=== PATIENT | male | born 1965 | race Caucasian/White ===

== ENCOUNTER 2017-04-04 16:10 | Inpatient (IN) ==
[2017-04-04] MEDS ORDERED: LORazepam 2 MG/1 ML VIAL IV STA (16:29)
[2017-04-04] MEDS ORDERED: ZIPRASIDONE 20 MG/1 ML VIAL IM STA (16:29)
[2017-04-04] MEDS ORDERED: LORazepam 2 MG/1 ML VIAL ONE (16:33)
[2017-04-04] MEDS ORDERED: ZIPRASIDONE 20 MG/1 ML VIAL IM ONE (16:33)
[2017-04-04 17:03] LABS: Basophils # 0.1 10*3/uL (0.0-0.2); Basophils % 0.3 % (0.0-0.8); Eosinophils % 0.2 % (0.00-10.9); Hematocrit 35.4 VOL% (42.0-52.0); Hemoglobin 12.6 GM/DL (14.0-18.0); Immature Granulocytes % 0.7 %; Immature Granulocytes Absolute 0.13 #; Lymphocytes # 0.7 10*3/uL (1.4-4.0); Mean Corpuscular HGB Conc 35.6 GM/DL (32-36); Mean Corpuscular Hemoglobin 30 PG (27-34); Mean Corpuscular Volume 84.3 FL (87-102); Mean Platelet Volume 8.1 FL (9.6-12.0); Monocytes # 0.7 10*3/uL (0.11-0.8); Monocytes % 3.8 % (1.7-12.7); Neutrophils # 16.3 10*3/uL (1.4-7.4); Platelet Count 471 T/CUMM (130-400); Red Cell Distribution Width 11.9 % (9.3-17.3); White Blood Count 17.9 T/CUMM (4-12)
[2017-04-04 17:17] LABS: Alanine Aminotransferase 29 U/L (16-61); Albumin 4.3 G/DL (3.4-5.0); Alkaline Phosphatase 78 U/L (45-117); Aspartate Amino Transferase 16 U/L (0-37); Blood Urea Nitrogen 25 MG/DL (7-18); Calcium 9.7 MG/DL (8.5-10.1); Glucose 262 MG/DL (74-106); Osmolality,Calculated 259.8 MOS/KG (273-304); Potassium 4.3 MMOL/L (3.5-5.1); Sodium 123 MMOL/L (136-145); Total Protein 8.2 G/DL (6.4-8.3)
[2017-04-04 17:30] LABS: Platelet Estimate Increased
[2017-04-04 17:47] LABS: Lymphocytes 6 % (20-55); Segmented Neutrophils 90 % (50-85); Total Cells Counted 100
[2017-04-04 18:20] LABS: Barbiturates Screen,Urine Negative (Negative); Benzodiazepines Screen,Urine Negative (Negative); Cannabinoid Screen,Urine Negative (Negative); Opiate Screen,Urine Negative (Negative); Phencyclidine Screen,Urine Negative (Negative)
[2017-04-04] MEDS ORDERED: ACETAMINOPHEN 500 MG TABLET PO PRN (19:44)
[2017-04-04] MEDS ORDERED: ACETAMINOPHEN 325 MG TABLET PO PRN (21:54)
[2017-04-04] MEDS ORDERED: GLUCAGON 1 MG VIAL IM PRN ×2 (21:54)
[2017-04-04] MEDS ORDERED: DEXTROSE 50% 25 GM/50 ML VIAL IV PRN ×2 (21:54)
[2017-04-04] MEDS ORDERED: ONDANSETRON 4 MG/2 ML VIAL IV PRN (21:54)
[2017-04-04] MEDS ORDERED: PERMETHRIN 5% CREAM 60 GM TUBE TOP ONE (21:54)
[2017-04-04] MEDS: INSULIN LISPRO 100 UNIT/ML SUBCUT SCH (22:10)
[2017-04-04] MEDS: glipiZIDE 10 MG TABLET PO SCH (22:18)
[2017-04-04] MEDS: TRIFLUOPERAZINE PO SCH (22:18)
[2017-04-04] MEDS: DOCUSATE SODIUM 100 MG CAPSULE PO SCH (22:18)
[2017-04-04] MEDS: PHENYTOIN ER 100 MG CAPSULE PO SCH (22:19)
[2017-04-04] MEDS: BENZTROPINE 1 MG TABLET PO SCH (22:19)
[2017-04-04] MEDS: SODIUM CHLORIDE 0.9% 1,000 ML IV SCH (22:20)
[2017-04-05 06:17] LABS: Basophils % 0.4 % (0.0-0.8); Eosinophils # 0.3 10*3/uL (0.0-0.87); Eosinophils % 2.4 % (0.00-10.9); Hematocrit 34.3 VOL% (42.0-52.0); Hemoglobin 11.8 GM/DL (14.0-18.0); Immature Granulocytes % 0.4 %; Immature Granulocytes Absolute 0.05 #; Lymphocytes # 1.8 10*3/uL (1.4-4.0); Lymphocytes % 15.7 % (21.2-54.2); Mean Corpuscular HGB Conc 34.4 GM/DL (32-36); Mean Corpuscular Hemoglobin 30 PG (27-34); Mean Corpuscular Volume 86.8 FL (87-102); Mean Platelet Volume 8.4 FL (9.6-12.0); Monocytes # 0.8 10*3/uL (0.11-0.8); Monocytes % 7.2 % (1.7-12.7); Neutrophils # 8.3 10*3/uL (1.4-7.4); Neutrophils % 73.9 % (38.7-73.9); Platelet Count 451 T/CUMM (130-400); Red Blood Count 3.95 MC/CUMM (3.8-5.5); Red Cell Distribution Width 12.2 % (9.3-17.3); White Blood Count 11.2 T/CUMM (4-12)
[2017-04-05 07:01] LABS: Calcium 9.8 MG/DL (8.5-10.1); Osmolality,Calculated 275.1 MOS/KG (273-304); Potassium 4.4 MMOL/L (3.5-5.1)
[2017-04-05] MEDS: SODIUM CHLORIDE 0.9% 1,000 ML IV SCH (07:16)
[2017-04-05] MEDS ORDERED: PIOGLITAZONE 15 MG TABLET PO SCH (09:00)
[2017-04-05] MEDS ORDERED: PANTOPRAZOLE 40 MG TABLET PO SCH (09:00)
[2017-04-05] MEDS ORDERED: FENOFIBRATE 145 MG TABLET PO SCH (09:00)
[2017-04-05] MEDS ORDERED: PARoxetine 10 MG TABLET PO SCH (09:00)
[2017-04-05] MEDS ORDERED: IRBESARTAN 150 MG TABLET PO SCH (09:00)
[2017-04-05] MEDS: INSULIN LISPRO 100 UNIT/ML SUBCUT SCH ×2 (10:31→12:15)
[2017-04-05] MEDS: glipiZIDE 10 MG TABLET PO SCH (10:34)
[2017-04-05] MEDS: TRIFLUOPERAZINE PO SCH (10:35)
[2017-04-05] MEDS: PHENYTOIN ER 100 MG CAPSULE PO SCH (10:35)
[2017-04-05] MEDS: BENZTROPINE 1 MG TABLET PO SCH (10:35)
[2017-04-05] MEDS: DOCUSATE SODIUM 100 MG CAPSULE PO SCH (10:35)
[2017-04-05 11:51] VITALS: BP 130/68
[2017-04-05] MEDS ORDERED: ZIPRASIDONE 20 MG CAPSULE PO SCH (17:00)
== END 2017-04-05 14:35 | disposition home or self-care (01) | DRG 641 ==
LOC: EDUNIT# → N.ED 16:10 → INTOOBSV 17:32 → OBSVTOIN 17:32 → N.EDINP 17:32 → N.2E 19:12
PROVIDERS: ADMIT Family Medicine; ATTEND Family Medicine